=== PATIENT | female | born 1980 | race Caucasian/White ===

== ENCOUNTER 2016-09-04 09:10 | Inpatient (IN) | payer OTHER ==
[2016-09-04 10:51] VITALS: BMI 25.7
[2016-09-04 10:55] LABS: BASOPHIL 0.3 % (0-2.0); EOSINOPHIL 0.3 % (0-4.5); MCH 31.4 pg (25.7-33.7); MCHC 34.9 g/dl (32.0-36.0); MEAN CELL VOLUME 89.9 fl (80-96); MEAN PLT VOLUME 9.2 fl (7.5-11.1); NEUTROPHILS 80.4 % (42.8-82.8); PLATELET COUNT 141 K/MM3 (134-434); RDW 14.3 % (11.6-15.6); WHITE BLOOD COUNT 11.6 K/mm3 (4.0-10.0)
[2016-09-04] MEDS ORDERED: DEXTROSE 5%-LACTATED RINGERS 1,000 ML IV SCH (11:00)
--- NOTE | 2016-09-04 11:07 | HP ---
Past Medical History - Primary Care Physician PCP:: Severiano Campbell - Admission Chief Complaint: 36yo P2 with spontaneous labor at EGA 40wks History of Present Illness: Spontaneous labor care complicated by : AMA GDM A1 History Source: Patient, Medical Record Limitations to Obtaining History: No Limitations - Past Medical History BUMBOATER: No: Alzheimer's, CVA, Dementia, Migraine, Multiple Sclerosis, Peripheral Neuropathy, Parkinson's, Seizure, Syncope, TIA, Vertigo, Other Pulmonary: No: Asthma, Bronchitis, Cancer, COPD, O2 Dependent, Pneumonia, Previously Intubated, Pulmonary Embolus, Pulmonary Fibrosis, Sleep Apnea, Other Gastrointestinal: No: Ascites, Cancer, Constipation, Crohn's Disease, Diverticulitis, Diverticulosis, Esophageal Varices, Gastritis, GERD, GI Bleed, Hemorrhoids, Hiatal Hernia, Inflamatory Bowel Disease, Irritable Bowel Disease, Pancreatitis, Peptic Ulcer Disease, Ulcerative Colitis, Other Hepatobiliary: No: Cirrhosis, Cholelithiasis, Cholecystitis, Choledocholithiasis , Hepatitis A, Hepatitis B, Hepatitis C, Other Renal/: No: Renal Failure, Renal Inusuff, BPH, Cancer, Hematuria, Hemodialysis , Neurogenic Bladder, Renal Calculi, UTI, Other Reproductive: No: Ectopic , Endometriosis, Fibroids, PID, Polycystic Ovary Syndrome, Postmenopausal, Other ...: 3 ...Para: 2 ...Term: 2 ( x 2) ...LMP: 12/03/15 ... Weeks Gestation by Dates: 39.3 ...EDC by Dates: 09/08/16 ...EDC by Sono: 09/04/16 Heme/Onc: No: Anemia, B12 Deficiency, Bleeding Disorder, Cancer, Current Chemotherapy, Current Radiation Therapy, Hemochromatosis, Hypercoaguable State, Myeloproliferative Synd, Sickle Cell Disease, Sickle Cell Trait, Thrombocytopenia, Other Infectious Disease: No: AIDS, C-Diff, Herpes Zoster, HIV, MRSA, STD's, Tuberculosis, VREF, Other Psych: No: Addictions, Anxiety, Bipolar, Depression, Panic, Psychosis, Schizophrenia, Other Musculoskeletal: No: Bursitis, Chronic low back pain, Hemiparesis, Hemiplegia, Osteoarthritis, Paraplegia, Other Rheumatology: No: Fibromyalgia, Gout, Lupus, Rheumatoid Arthritis, Sarcoidosis, Vasculitis, Other ENT: No: Allergic Rhinitis, Sinusitis, Other Endocrine: Yes: Diabetes Mellitus (GDM A1) Dermatology: No: Basal Cell, Cellulitis, Eczema, Melanoma, Psoriasis, Squamous Cell, Other - Past Surgical History Past Surgical History: Yes: None Hx Myomectomy: No Hx Transabdominal Cerclage: No - Smoking History Smoking history: Never smoked Have you smoked in the past 12 months: No - Alcohol/Substance Use Hx Alcohol Use: No History of Substance Use: reports: None - Social History Usual Living Arrangement: Yes: With Spouse, With Child ADL: Independent History of Recent Travel: No Home Medications - Allergies Allergies/Adverse Reactions: Allergies Allergy/AdvReac Type Severity Reaction Status Date / Time No Known Allergies Allergy Verified 09/04/16 09:57 - Home Medications Home Medications: Ambulatory Orders Pnv with Ca,No.72/Iron/FA [ Plus Tablet] 1 tab PO DAILY 09/04/16 Family Disease History - Family Disease History Family History: Denies Review of Systems - Review of Systems Constitutional: reports: No Symptoms Eyes: reports: No Symptoms HENT: reports: No Symptoms Neck: reports: No Symptoms Cardiovascular: reports: No Symptoms Respiratory: reports: No Symptoms Gastrointestinal: reports: No Symptoms Genitourinary: reports: No Symptoms Breasts: reports: No Symptoms Reported Musculoskeletal: reports: No Symptoms Integumentary: reports: No Symptoms Neurological: reports: No Symptoms Endocrine: reports: No Symptoms Hematology/Lymphatic: reports: No Symptoms Psychiatric: reports: No Symptoms Pain Intensity: 7 Physical Exam - Maternity Vital Signs: Vital Signs Temperature 98.0 F 09/04/16 10:00 Pulse Rate 87 09/04/16 10:00 Respiratory Rate 18 09/04/16 10:00 Blood Pressure 104/78 09/04/16 10:00 O2 Sat by Pulse Oximetry (%) Constitutional: Yes: Well Nourished, No Distress, Calm Eyes: Yes: WNL, Conjunctiva Clear HENT: Yes: WNL, Atraumatic, Normocephalic Neck: Yes: WNL, Supple, Trachea Midline Cardiovascular: Yes: WNL, Regular Rate and Rhythm Lungs: Clear to auscultation, Normal air movement Breast(s): Yes: WNL - Abdominal Exam/OB Fundal Height: 40 Number of Fetuses: Single Presentation: Vertex Contractions: Yes Regularity: Regular Intensity: Mod/Strong Monitor Mode: External Heart Rate (range): 135 Heart Rate Location: Midline Category: I Accelerations: Non-Uniform Decelerations: None - Vaginal Exam/OB Vaginal Bleediing: No Speculum Exam: No Dilatation (cm): 4.5 Amniotic Membrane Status: Ruptured (AROM) Amniotic Fluid: Yes: Clear Presentation: Vertex/Position Station: 0 (Adequate pelvimetry) - Physical Exam Musculoskeletal: Yes: WNL Extremities: Yes: WNL Edema: No Edema: LLE: Trace, RLE: Trace Integumentary: Yes: WNL Deep Tendon Reflex Grade: Normal +2 ...Motor Strength: WNL Psychiatric: Yes: WNL, Alert, Oriented Hemorrhage Risk Assessment - Risk Factors Medium Risk Factors: Yes: None High Risk Factors: Yes: None Risk Score: 1 Risk Level: Medium Risk Imaging - Results Ultrasound: Report Reviewed Assessment/Plan 36yo P2 with spontaneous labor at EGA 40wks. Fetus with Category I tracing. Fetus requires no intervention. Labor is in early active phase. Plan to monitor progress. Anticipate .
[2016-09-04 11:12] LABS: INR 0.94 (0.82-1.09); PROTHROMBIN TIME (PATIENT) 10.3 SEC (9.98-11.88)
[2016-09-04 11:14] LABS: CALCIUM 8.9 mg/dL (8.5-10.1); COCKROFT - GAULT 226.134; CREATININE 0.4 mg/dL (0.55-1.02)
[2016-09-04 11:15] LABS: ACTIVATED PTT 25.7 SECONDS (26.9-34.4)
[2016-09-04] MEDS ORDERED: TUBERCULIN PPD 5 TU/0.1ML SYRINGE (IN PATIENT USE ONLY) ID ONE (11:30)
[2016-09-04 11:41] LABS: HIV 1 & 2 AB NEGATIVE; HIV 1 AGp24 NEGATIVE
--- NOTE | 2016-09-04 12:35 | PN ---
Ante-Partal Exam - Subjective Subjective: No complaints Vital Signs: Vital Signs Temperature 97.8 F 09/04/16 12:00 Pulse Rate 78 09/04/16 12:00 Respiratory Rate 18 09/04/16 12:00 Blood Pressure 122/75 09/04/16 12:00 O2 Sat by Pulse Oximetry (%) Bleeding: No Headache: No Visual changes: No Right upper quadrant pain: No Pain (scale 1-10): 7 - Contractions Contractions: Yes (q6-10min) Regularity: Irregular Intensity: Mod/Strong Monitor Mode: External - Exam during Labor Heart Rate: 140 Variability: Moderate Heart Rate Location: Midline Category: I Monitor Accelerations: Present Monitor Decelerations: None Exam: Vaginal Dilatation (cm): 6.7 Effacement (%): 90 Amniotic Membrane Status: Leaking Amniotic Fluid: Clear Presentation: Vertex Station: 0 - Intrapartum Hemorrhage Risk Medium Risk Factors: None High Risk Factors: None Risk Score: 0 Risk Level: Low Risk - Assessment/Plan Assessment/Plan: 36yo P2 with active labor. Contractions are irregular but pt is progressing. Will continue to monitor. tracing is Category I
[2016-09-04] MEDS ORDERED: PROMETHAZINE HCL 25 MG/1 ML VIAL IVPB ONE (14:30)
[2016-09-04] MEDS ORDERED: BUTORPHANOL TARTRATE 1 MG/ML VIAL IVPB ONE (14:30)
[2016-09-04] MEDS ORDERED: IBUPROFEN 600 MG TABLET (FP) PO PRN (17:24)
[2016-09-04] MEDS ORDERED: ACETAMINOPHEN 325 MG TABLET (FP) PO PRN (17:24)
[2016-09-04] MEDS ORDERED: BISACODYL 10 MG SUPP.RECT RC PRN (17:24)
[2016-09-04] MEDS ORDERED: METHYLERGONOVINE MALEATE 0.2 MG/1 ML AMP IM PRN (17:24)
[2016-09-04] MEDS ORDERED: WITCH HAZEL 50% (TUCKS) 40 PAD/JAR PAD TP PRN (17:24)
[2016-09-04] MEDS ORDERED: BENZOCAINE 20% 57 GM BOTTLE TP PRN (17:24)
[2016-09-04] MEDS ORDERED: BENZOCAINE 28 GM HEMORRHOIDAL OINTMENT TP PRN (17:24)
[2016-09-04] MEDS ORDERED: D5W-LR W/ 20 UNITS OXYTOCIN 1,000 ML IV SCH (17:30)
--- NOTE | 2016-09-04 20:13 | PN ---
Delivery - Delivery Vaginal Delivery: No Problems, Spontaneous Type of Anesthesia: Local Episiotomy/Laceration: 2nd degree (Perineal Laceration) EBL (cc): 350 Delivery, Single - Stages of Labor Date 1st Stage Initiatied: 09/04/16 Time 1st Stage Initiated: 06:00 Date 2nd Stage Initiated: 09/04/16 Time 2nd Stage Initiated: 16:15 Date of Delivery: 09/04/16 Time of Delivery: 16:48 Date Placenta Delivered: 09/04/16 Time Placenta Delivered: 17:00 Placenta: Yes: Spontaneous, Normal Configuration - Condition of Medical Physiologist/Guest Services Attendant Present: No Gender: Female Weight: 3.515 kg Position: Right, OA Total Hours ROM (Hrs/Mins): 6/05 - 1 Minute Total Score: 9 5 Minutes Total Score: 10 - Feeding Plan Initial Plan: Elected not to breastfeed exclusively throughout hospitalization Benefits of Exclusively reinforced: Yes Remarks - Remarks Remarks: Normal labor and delivery
[2016-09-05 06:55] LABS: BASOPHIL 0.3 % (0-2.0); EOSINOPHIL 0.6 % (0-4.5); MCH 31.8 pg (25.7-33.7); MEAN PLT VOLUME 9.7 fl (7.5-11.1); NEUTROPHILS 75.1 % (42.8-82.8); PLATELET COUNT 119 K/MM3 (134-434); RDW 14.4 % (11.6-15.6); WHITE BLOOD COUNT 12.9 K/mm3 (4.0-10.0)
[2016-09-05] MEDS ORDERED: BISACODYL 10 MG SUPP.RECT RC PRN (08:01)
[2016-09-05] MEDS ORDERED: BENZOCAINE 20% 57 GM BOTTLE TP PRN (08:01)
[2016-09-05] MEDS ORDERED: BENZOCAINE 28 GM HEMORRHOIDAL OINTMENT TP PRN (08:01)
[2016-09-05] MEDS ORDERED: METHYLERGONOVINE MALEATE 0.2 MG/1 ML AMP IM PRN (08:01)
[2016-09-05] MEDS ORDERED: WITCH HAZEL 50% (TUCKS) 40 PAD/JAR PAD TP PRN (08:01)
--- NOTE | 2016-09-05 08:01 | PN ---
Delivery - Delivery Vaginal Delivery: No Problems, Spontaneous Type of Anesthesia: Local Episiotomy/Laceration: 2nd degree (Perineal Laceration) EBL (cc): 350 Delivery, Single - Stages of Labor Date 1st Stage Initiatied: 09/04/16 Time 1st Stage Initiated: 06:00 Date 2nd Stage Initiated: 09/04/16 Time 2nd Stage Initiated: 16:15 Date of Delivery: 09/04/16 Time of Delivery: 16:48 Time Placenta Delivered: 17:00 Placenta: Yes: Spontaneous, Normal Configuration - Condition of Infant Teenage Program Director/3Rd Grade Teacher Present: No Gender: Female Weight: 7 lb 12 oz Position: Right, OA Total Hours ROM (Hrs/Mins): 6/05 - 1 Minute Total Score: 9 5 Minutes Total Score: 10 - Feeding Plan Initial Plan: Elected not to breastfeed exclusively throughout hospitalization Benefits of Exclusively reinforced: Yes
[2016-09-05] MEDS ORDERED: D5W-LR W/ 20 UNITS OXYTOCIN 1,000 ML IV SCH (08:15)
--- NOTE | 2016-09-05 09:32 | PN ---
Post Progress Note - Subjective Subjective: 36yo P3 now s/p no complains Post Day: 1 Type of Delivery: Vital Signs: Vital Signs Temperature 97.4 F L 09/05/16 05:51 Pulse Rate 66 09/05/16 05:51 Respiratory Rate 20 09/05/16 05:51 Blood Pressure 116/69 09/05/16 05:51 O2 Sat by Pulse Oximetry (%) 99 09/04/16 18:15 Breast Exam: Yes: Soft Uterus: Yes: Fundus Firm, Non-tender Abdomen/GI: Yes: Abdomen soft, Tolerating PO Lochia: Yes: Rubra Lochia, amount: Moderate Extremities: Yes: Calves non-tender Perineum: Yes: Intact - Labs Labs: CBC WBC 12.9 K/mm3 (4.0-10.0) H 09/05/16 06:25 RBC 3.76 M/mm3 (3.60-5.2) 09/05/16 06:25 Hgb 12.0 GM/dL (10.7-15.3) 09/05/16 06:25 Hct 34.2 % (32.4-45.2) 09/05/16 06:25 MCV 91.0 fl (80-96) 09/05/16 06:25 MCHC 35.0 g/dl (32.0-36.0) 09/05/16 06:25 RDW 14.4 % (11.6-15.6) 09/05/16 06:25 Plt Count 119 K/MM3 (134-434) L 09/05/16 06:25 MPV 9.7 fl (7.5-11.1) 09/05/16 06:25 Neutrophils % 75.1 % (42.8-82.8) 09/05/16 06:25 Lymphocytes % 17.0 % (8-40) D 09/05/16 06:25 Monocytes % 7.0 % (3.8-10.2) 09/05/16 06:25 Eosinophils % 0.6 % (0-4.5) D 09/05/16 06:25 Basophils % 0.3 % (0-2.0) 09/05/16 06:25 Assessment/Plan 36 yo P3 now doing well, VSS, Afibrile Plans to breastfeed continue routine care Rh positive no need for RhoGam Plan to d/c 09/06/16
[2016-09-05] MEDS ORDERED: PRENATAL VITAMINS W/ FOLIC ACID TABLET (FP) PO SCH (10:00)
[2016-09-05] MEDS: PRENATAL VITAMINS W/ FOLIC ACID TABLET (FP) PO SCH (10:24)
[2016-09-05] MEDS: FERROUS SO4 325 MG TABLET (FP) PO SCH ×2 (10:24→21:06)
[2016-09-05] MEDS: IBUPROFEN 600 MG TABLET (FP) PO PRN (10:32)
[2016-09-05] MEDS: ACETAMINOPHEN 325 MG TABLET (FP) PO PRN (10:33)
[2016-09-05] MEDS ORDERED: SENNOSIDES/DOCUSATE COMBO (SENNA PLUS) TABLET (UD) PO PRN (22:00)
[2016-09-05 22:28] VITALS: TEMP 97.8
[2016-09-06 07:37] LABS: BASOPHIL 0.6 % (0-2.0); EOSINOPHIL 1.8 % (0-4.5); MCH 31.5 pg (25.7-33.7); MCHC 34.5 g/dl (32.0-36.0); MEAN CELL VOLUME 91.1 fl (80-96); MEAN PLT VOLUME 9.2 fl (7.5-11.1); PLATELET COUNT 132 K/MM3 (134-434); RDW 14.3 % (11.6-15.6); WHITE BLOOD COUNT 11.2 K/mm3 (4.0-10.0)
[2016-09-06 07:40] VITALS: BP 104/67; PULSE 65
[2016-09-06] MEDS: PRENATAL VITAMINS W/ FOLIC ACID TABLET (FP) PO SCH (09:04)
[2016-09-06] MEDS: FERROUS SO4 325 MG TABLET (FP) PO SCH (09:05)
[2016-09-06] MEDS: IBUPROFEN 600 MG TABLET (FP) PO PRN (09:05)
[2016-09-06] MEDS: ACETAMINOPHEN 325 MG TABLET (FP) PO PRN (09:06)
--- NOTE | 2016-09-06 13:27 | DS ---
Physical Exam-BAGGAGE SMASHER Vital Signs: Vital Signs Temperature 97.8 F 09/06/16 07:38 Pulse Rate 65 09/06/16 07:38 Respiratory Rate 18 09/06/16 07:38 Blood Pressure 104/67 09/06/16 07:38 O2 Sat by Pulse Oximetry (%) 99 09/04/16 18:15 Constitutional: Yes: Well Nourished, No Distress, Calm Eyes: Yes: WNL, Conjunctiva Clear HENT: Yes: WNL, Atraumatic, Normocephalic Neck: Yes: WNL, Supple, Trachea Midline Cardiovascular: Yes: WNL, Regular Rate and Rhythm Respiratory: Yes: WNL, Regular, CTA Bilaterally Gastrointestinal: Yes: WNL, Normal Bowel Sounds, Soft Renal/: Yes: WNL Pelvis: Yes: WNL External Genitalia: Yes: Normal Internal Exam Deferred: Yes ....Post : Yes: Uterus firm, Uterus non-tender, Slight lochia rubra Breast(s): Yes: WNL Musculoskeletal: Yes: WNL Extremities: Yes: WNL Edema: Yes Edema: LLE: 1+, RLE: 1+ Integumentary: Yes: WNL Neurological: Yes: WNL, Alert, Oriented ...Motor Strength: WNL Psychiatric: Yes: WNL, Alert, Oriented Labs: CBC, BMP 09/06/16 06:40 09/04/16 10:40 Delivery - Delivery Vaginal Delivery: No Problems, Spontaneous Type of Anesthesia: Local Episiotomy/Laceration: 2nd degree (Perineal Laceration) EBL (cc): 350 Delivery, Single - Stages of Labor Date 1st Stage Initiatied: 09/04/16 Time 1st Stage Initiated: 06:00 Date 2nd Stage Initiated: 09/04/16 Time 2nd Stage Initiated: 16:15 Date of Delivery: 09/04/16 Time of Delivery: 16:48 Time Placenta Delivered: 17:00 Placenta: Yes: Spontaneous, Normal Configuration - Condition of Cycle Director/Customer Data Technician Present: No Gender: Female Weight: 3.515 kg Position: Right, OA Total Hours ROM (Hrs/Mins): 6/05 - 1 Minute Total Score: 9 5 Minutes Total Score: 10 - Feeding Plan Initial Plan: Elected not to breastfeed exclusively throughout hospitalization Benefits of Exclusively reinforced: Yes Discharge Summary Reason For Visit: LABOR Procedures: Principal: [facility] Hospital Course: Normal recovery Condition: Good - Instructions Diet, Activity, Other Instructions: Physical activity Resume your normal everyday activity as tolerated no heavy lifting or exercise until seen by your surgeon. You may walk unlimited martha of and climb stairs. You may resume driving the car when you feel safe and comfortable behind the wheel. No sexual activity as instructed. Wound care If you have a bandage, leave it on, and keep dry for 48-72 hours. After that time discard the outer bandage. If they are tapes on the skin under the out of bandage leave them in place. They will peel off in the next 7 to 10 days. Do Not Peel them off. You may shower the day after surgery. If there are tapes present on the skin, you may shower over them. Diet There are no dietary restrictions. Eat healthy, high-fiber foods. Drink 6 to 8 glasses of liquid each day. This will assist in keeping your bowels are regular. Pain management You may take Tylenol or acetaminophen or Ibuprofen (for example, Motrin, Advil etc.) from my pain prescription medication is ordered should be taken as prescribed for moderate to severe pain. Call MD for any of the following: Severe pain not relieved by medication Fever of 101 or higher Excessive bleeding or drainage on dressing Inability to urinate Referrals: Severiano Campbell MD [Staff Physician] - Disposition: HOME - Home Medications Comprehensive Discharge Medication List: Ambulatory Orders Pnv with Ca,No.72/Iron/FA [ Plus Tablet] 1 tab PO DAILY 09/04/16
[2016-09-06] MEDS ORDERED: SENNOSIDES/DOCUSATE COMBO (SENNA PLUS) TABLET (UD) PO PRN (22:00)
== END 2016-09-06 15:00 | disposition home or self-care (01) | DRG 775 ==
LOC: JDEL 09:10 → JLDR 10:00 → J3W 19:45
PROVIDERS: ADMIT Obstetrics & Gynecology; ATTEND Obstetrics & Gynecology
PROC: 10E0XZZ Delivery of Products of Conception, External Approach (ICD-10-PCS; principal; 2016-09-04)
PROC: 0KQM0ZZ Repair Perineum Muscle, Open Approach (ICD-10-PCS; 2016-09-04)
DX: O24.420 Gestational diabetes mellitus in childbirth, diet controlled (principal); O70.1 Second degree perineal laceration during delivery; Z37.0 Single live birth; Z3A.39 39 weeks gestation of pregnancy
CPT/HCPCS: 36415; 59409; 80048; 85025; 85610; 85730; 86593; 86850; 86900; 86901; 87389